=== PATIENT | male | born 1985 | race Caucasian/White ===

== ENCOUNTER 2024-12-29 21:43 | Emergency (ER) | payer SELFPAY ==
[2024-12-29 21:52] VITALS: BP 136/88
[2024-12-30] VITALS (7 sets, daily range): BP systolic 118–151; BP diastolic 68–105; BMI 37.8
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
[2024-12-30] MEDS: TORADOL 15 MG IM (03:57)
[2024-12-30] MEDS: FLEXERIL 10 MG PO (03:58)
== END 2024-12-30 06:48 | disposition home or self-care (01) ==
LOC: EMR 21:43
PROVIDERS: EMERGENCY PHYSICIAN Student in an Organized Health Care Education/Training Program; FAMILY PHYSICIAN Physician Assistant
DX: S13.4XXA Sprain of ligaments of cervical spine, initial encounter (principal); M25.511 Pain in right shoulder; V49.49XA Driver injured in collision with other motor vehicles in traffic accident, initial encounter; Y92.410 Unspecified street and highway as the place of occurrence of the external cause
CPT/HCPCS: 96372; 99284; 72040; 72125; 73030